=== PATIENT | male | born 1990 | race African-American/Black ===

== ENCOUNTER 2017-07-05 14:27 | Emergency (ER) | payer SELFPAY ==
[~2017-07-05] VITALS: Ht 193 cm; Wt 77.1 kg
[2017-07-05 14:38] VITALS: BP 113/65
[2017-07-05] MEDS ORDERED: IBUPROFEN 600 MG TABLET PO ONE ×2 (15:00→15:05)
[2017-07-05 15:38] LABS: APPEARANCE,URINE Clear (CLEAR); BILIRUBIN,URINE SMALL (NEGATIVE); BLOOD, URINE Negative Ery/uL (NEGATIVE); COLOR,URINE Yellow (YELLOW); KETONES,URINE Trace (NEGATIVE); LEUKOCYTE ESTERASE ,URINE Negative (NEGATIVE); NITRITE, URINE Negative (NEGATIVE); PH,URINE 5.5 (5.0-8.0); PROTEIN,URINE Trace mg/dl (NEGATIVE); UGLUCOSE Negative (NEGATIVE); UROBILINOGEN,URINE 0.2 EU/dL (0.2)
[2017-07-05 15:44] LABS: BACTERIA,URINE Rare /HPF (None Seen); RBC,URINE 0-2 /HPF (0-2); SQUAMOUS EPITHELIAL CELL,UR Few /HPF (None Seen); WBC,URINE 0-2 /HPF (0-3)
== END 2017-07-05 15:58 | disposition home or self-care (01) ==
LOC: ER 14:33
DX: J06.9 Acute upper respiratory infection, unspecified (principal); M54.5 Low back pain
CPT/HCPCS: 81000-TC; A4606; Z7610